=== PATIENT | male | born 1950 | race Caucasian/White ===

== ENCOUNTER 2024-08-24 11:18 | Emergency (ER) | payer MEDICARE, OTHER, SELFPAY ==
[2024-08-24 11:44] VITALS: BP 140/64
--- NOTE | 2024-08-24 11:58 | ED.GENMED ---
ED Provider Triage
<Christine Michelle PA-C - Last Filed: 08/26/24 07:27>
-
Patient seen by provider in Triage?: Seen in Triage
74-year-old male with a history of hypertension, hyperlipidemia, mini strokes, chronically uses a cane, coming from physical therapy after the therapist noticed his left calf is swollen more than the right and he had a little puffiness to his hands
and maybe even his face. Patient says he did have a mechanical fall this morning in the shower. His was unaware that he fell. He said he slipped and fell backwards not striking his head and had no loss of consciousness. He was able to get
himself up. He had a little bit of soreness in his knees but no headache, neck pain, back pain. Patient says he as per usual came to physical therapy and then was instructed to come here. If not for the physical therapist he would not be here.
A medical screening examination has been initiated by a qualified medical provider. Based on the assessment performed at this time, it has been determined that an emergent medical condition may exist and the patient has been informed that further
medical evaluation and possible additional diagnostic testing may be needed.
HPI: This is a medical evaluation conducted in person to initiate diagnostic evaluation and provide initial therapeutics. Please see further documentation by the treating clinician.
GENERAL: Alert , in no apparent distress
ENT: No visible abnormalities
LUNGS: No acute respiratory distress
NEUROLOGICAL: Alert and oriented
SKIN: Skin intact. No visible changes.
MUSCULOSKELETAL: Moving extremities normally
Bilateral knees, no significant swelling, full range of motion, possibly slightly swollen left calf with a varicosity that is nontender, nonerythematous had mild edema in both lower extremities, I do not appreciate any facial edema
PSYCH: Normal and appropriate interaction.
Patient did have a fall today however it does not seem like that is why he is here. His physical therapist noticed that he looks a little puffy and had swelling to his left calf. Patient says he is not aware that this calf is usually swollen more
than the right side. Will workup with labs and a ultrasound. He does not seem to need any traumatic imaging
History of Present Illness
<Christine Michelle PA-C - Last Filed: 08/26/24 07:27>
General
Chief Complaint: Fall
Time Seen by Provider: 08/24/24 12:15
<Kiana Baker PA-C - Last Filed: 08/24/24 22:48>
General
Source: patient
Exam Limitations: none
Nursing documentation reviewed up to this point in time: agreed with
History of Present Illness
History of Present Illness:
Patient is a 74 year old male with hx hypertension, diabetes, TIA presenting to the emergency department from physical therapy due to lower extremity swelling. Patient was at physical therapy today when the therapist felt that his he had worsening
swelling in his left lower leg in comparison to his right lower leg. They were concerned for possible blood clot and sent him to the emergency department. They did also note some swelling to his bilateral hands and his face.
Patient has been seeing physical therapy due to balance difficulties following mini strokes. He does state that he has been dealing with swelling of his lower legs and hands over the past month or so for which she has been following with his PCP.
They did recently switch him off of his amlodipine.
Patient states that he did sustain a mechanical slip and fall today while getting out of the shower. He did not hit his head or lose consciousness. He has been ambulating with a cane at his baseline since.
Patient denies any associated chest pain, shortness of breath. No recent travel or recent surgeries. No history of blood clots clotting disorders.
Past History
<Christine Michelle PA-C - Last Filed: 08/26/24 07:27>
Past History
ED Past Medical History: HTN, NIDDM and Other (syncope)
Social History
Tobacco: Non-smoker
Personal:
Living: with family
Employment: Employed
Review of Systems
<Kiana Baker PA-C - Last Filed: 08/24/24 22:48>
Review of Systems
Allergies reviewed?: Yes
All Other Systems: ROS reviewed and negative except as documented in HPI and ROS
Phy Exam
<Kiana Baker PA-C - Last Filed: 08/24/24 22:48>
Physical Exam
Physical Exam:
Vitals: Patient's vital signs are stable. Afebrile
General: Patient is well appearing, no acute distress. Nontoxic appearing
Skin: Warm and dry, no rashes or lesions
Head: Normocephalic, atraumatic
Eyes: Sclera nonicteric. EOMs intact. No nystagmus.
Throat: No tongue swelling or oral swelling. Protecting airway
Neck: Normal ROM, no cervical spine tenderness, no meningismus
Cardiac: Regular rate and rhythm, no murmurs.
Pulm: Normal respiratory effort, no wheezes, rales, rhonchi heard on exam.
Abdomen: Abdomen soft. No abdominal tenderness.
Extremities: Trace nonpitting edema in bilateral lower extremities which appears symmetric. No erythema, tenderness of bilateral calf. Negative Homans' sign bilaterally. Palpable DP pulses bilaterally. Upper extremities without any notable
edema. Bilateral upper and lower extremities atraumatic and nontender with full range of motion. No tenderness with internal/external rotation of bilateral hips.
Neuro: Grossly intact.
Psychiatric: Normal affect.
Course
<Christine Michelle PA-C - Last Filed: 08/26/24 07:27>
Orders/Labs/Results
Orders:
Orders
08/24/24 11:57
Periph Venous Lwr Ext Left US [US Periph Venous LOWER Ext LT] Urgent
Comment:
Reason For Exam: left calf swelling
08/24/24 12:02
Complete Blood Count/With Diff Urgent
Comprehensive Metabolic Panel Urgent
NT-proBNP Urgent
08/24/24 12:52
Interrogate Pacemaker- Treatment ONCE
08/24/24 13:40
Urinalysis Reflex To Culture Urgent
Date Specimen was Collected: 08/24/24
Time Specimen was Collected: 13:05
Abnormal Lab Results
08/24/24 08/24/24
12:02 13:40
MCHC 32.8 L g/dL
(33.0-37.0)
Carbon Dioxide 31 H mmol/L
(22-30)
BUN 34 H mg/dl
(9-20)
Glucose 146 H mg/dl
(70-99)
Urine Glucose 3+ A
(Negative)
08/24/24 12:02
08/24/24 12:02
Vital Signs
Initial and Last Documented VS:
Initial Vital Signs
Temp Pulse Resp BP Pulse Ox
37.0 C 50 18 140/64 96
08/24/24 11:44 08/24/24 11:44 08/24/24 11:44 08/24/24 11:44 08/24/24 11:44
Last Documented Vital Signs
Temp Pulse Resp BP Pulse Ox
37.0 C 50 18 144/74 96
08/24/24 11:44 08/24/24 14:54 08/24/24 14:54 08/24/24 14:54 08/24/24 11:44
<Kiana Baker PA-C - Last Filed: 08/24/24 22:48>
Orders/Labs/Results
Orders:
Orders
08/24/24 11:57
Periph Venous Lwr Ext Left US [US Periph Venous LOWER Ext LT] Urgent
Comment:
Reason For Exam: left calf swelling
08/24/24 12:02
Complete Blood Count/With Diff Urgent
Comprehensive Metabolic Panel Urgent
NT-proBNP Urgent
08/24/24 12:52
Interrogate Pacemaker- Treatment ONCE
08/24/24 13:40
Urinalysis Reflex To Culture Urgent
Date Specimen was Collected: 08/24/24
Time Specimen was Collected: 13:05
Abnormal Lab Results
08/24/24 08/24/24
12:02 13:40
MCHC 32.8 L g/dL
(33.0-37.0)
Carbon Dioxide 31 H mmol/L
(22-30)
BUN 34 H mg/dl
(9-20)
Glucose 146 H mg/dl
(70-99)
Urine Glucose 3+ A
(Negative)
08/24/24 12:02
08/24/24 12:02
Vital Signs
Initial and Last Documented VS:
Initial Vital Signs
Temp Pulse Resp BP Pulse Ox
37.0 C 50 18 140/64 96
08/24/24 11:44 08/24/24 11:44 08/24/24 11:44 08/24/24 11:44 08/24/24 11:44
Last Documented Vital Signs
Temp Pulse Resp BP Pulse Ox
37.0 C 50 18 144/74 96
08/24/24 11:44 08/24/24 14:54 08/24/24 14:54 08/24/24 14:54 08/24/24 11:44
<Bigg Morse MD - Last Filed: 08/24/24 13:20>
Orders/Labs/Results
Orders:
Orders
08/24/24 11:57
Periph Venous Lwr Ext Left US [US Periph Venous LOWER Ext LT] Urgent
Comment:
Reason For Exam: left calf swelling
08/24/24 12:02
Complete Blood Count/With Diff Urgent
Comprehensive Metabolic Panel Urgent
NT-proBNP Urgent
08/24/24 12:52
Interrogate Pacemaker- Treatment ONCE
08/24/24 13:40
Urinalysis Reflex To Culture Urgent
Date Specimen was Collected: 08/24/24
Time Specimen was Collected: 13:05
Abnormal Lab Results
08/24/24 08/24/24
12:02 13:40
MCHC 32.8 L g/dL
(33.0-37.0)
Carbon Dioxide 31 H mmol/L
(22-30)
BUN 34 H mg/dl
(9-20)
Glucose 146 H mg/dl
(70-99)
Urine Glucose 3+ A
(Negative)
08/24/24 12:02
08/24/24 12:02
Vital Signs
Initial and Last Documented VS:
Initial Vital Signs
Temp Pulse Resp BP Pulse Ox
37.0 C 50 18 140/64 96
08/24/24 11:44 08/24/24 11:44 08/24/24 11:44 08/24/24 11:44 08/24/24 11:44
Last Documented Vital Signs
Temp Pulse Resp BP Pulse Ox
37.0 C 50 18 144/74 96
08/24/24 11:44 08/24/24 14:54 08/24/24 14:54 08/24/24 14:54 08/24/24 11:44
<Kiana Baker PA-C - Last Filed: 08/24/24 22:48>
MDM/Problems Addressed
Differential Diagnosis Includes:
Not limited to: Medication side effect, dependent edema, DVT, nephrotic syndrome, etc.
MDM/Problems Addressed:
74 year old male presents with mild swelling of bilateral lower extremities, left slightly worse than right. No associated fevers, chest, pain, or shortness of breath. Patient did have mechanical fall this morning although denies any head strike or
traumatic injuries. Vitals stable. On exam patient is resting comfortably. No evidence of head or neck trauma. Cardio/pulmonary assessment unremarkable. Mild nonpitting edema of b/l lower extremities, left possibly slightly worse than right. No
erythema or tenderness to suggest infectious process. No traumatic injuries noted. Labs were obtained in triage without clinically significant abnormalities. BNP is not significantly elevated - do not suspect CHF. US lower extremity pending. Will
check UA to rule out significant proteinuria vs infection. Pacemaker was interrogated without any events noted. Patient otherwise stable and if all negative - anticipate discharge with primary f/u.
Update: US shows no evidence of DVT. UA without evidence of infection or protein to suggest a nephrotic syndrome. Patient very stable. Edema minimal - feel he is stable for discharge with outpatient f/u with primary care. Return precautions
discussed.
Chronic conditions affecting care:
Hypertension
Acute Exacerbation and/or Progression of Chronic Illness:
N/A
<Kiana Baker PA-C - Last Filed: 08/24/24 22:48>
*Radiology
Radiology exam reviewed: radiology read reviewed (No evidence of DVT)
*Pulse Oximetry
Patient hypoxic: no
*EKG
Interpreted by ED Provider?: NA
*Post Commander Interpretation
Rate: Post Commander- N/A
*Critical Care Note
Total Time (30-74mins, 75-104mins- exclusive of procedures): Not Applicable
ED Attending Note
<Christine Michelle PA-C - Last Filed: 08/26/24 07:27>
-
Portions of this chart may have been created with voice recognition software.� Occasional wrong word or��sound alike� substitutions may have occurred due to the inherent limitations of voice recognition software.
<Bigg Morse MD - Last Filed: 08/24/24 13:20>
ED Attending Note
Patient seen and examined by attending physician: Yes
ED Attending Note:
I have seen and evaluated the patient with a [id number] encounter. I have spoken to the advance practicer provider and involved in the medical history, the physical exam, medical decision making.
Evaluation and management service: agree unless noted differently below.
Results interpretation: agree unless noted differently below.
Focused HPI: 74-year-old male with history as documented presents to the ER for evaluation of left leg swelling. He is at PT after stroke. He says that the therapist noted some increase swelling in the left leg. Sent him to the ER to be evaluated
to rule out DVT. He says he did have some achiness in his knees on both sides this morning more than usual dad and arthritis. He says he has had chronic 'puffiness' in his hands and feet for months. Had been attributed to amlodipine and primary
doctor switched to a different blood pressure medication. Slight improvement but not resolution. Denies any shortness of breath. Denies any cough. He denies any other complaints.
Physical exam: Awake alert no distress. Vitals within acceptable range. He has no cardiac rubs gallops or murmurs. Loop recorder left upper chest. Lungs clear to auscultation bilaterally. No notable edema in the upper extremities, trace
nonpitting edema in the lower extremities bilaterally but appears roughly symmetric. No significant calf tenderness, no erythema of the left calf. Good strong pulses in all extremities.
Medical Decision Makin-year-old male presents with mild swelling in the legs he feels slightly worse on the left. Vitals and exam as above. Labs were sent off in triage including a CBC and a CMP which were unremarkable. His proBNP is not
significantly elevated. Urinalysis pending. DVT study pending. If negative likely discharge to follow-up with PCP.
Discharge Plan
Departure
Patient Disposition: Home (Routine Discharge)
Date of Disposition: 08/24/24
Time of Disposition: 14:25
Patient with high blood pressure during this ER visit?: Yes
Condition: Good
Covid-19: Not Applicable
Discharge Problem:
Peripheral edema
Instructions: Swelling, Preventing falls in adults, BLOOD PRESSURE
Prescriptions:
No Action
pioglitazone 45 MG tablet
45 mg PO DAILY
potassium chloride [Klor-Con 10] 10 MEQ tablet extended release
10 meq PO BID
amlodipine 5 MG tablet
5 mg PO DAILY
tamsulosin 0.4 MG capsule
0.4 mg PO HS
paroxetine HCl [Paxil] 20 MG tablet
20 mg PO HS
metformin 1,000 MG tablet
1,000 mg PO BID
glimepiride 4 MG tablet
4 mg PO BID
losartan 25 MG tablet
50 mg PO BID
hydrochlorothiazide 12.5 MG capsule
12.5 mg PO DAILY
metoprolol succinate 25 MG tablet extended release 24 hr
25 mg PO DAILY
rosuvastatin 10 MG tablet
10 mg PO DAILY
sitagliptin phosphate [Januvia] 100 MG tablet
100 mg PO DAILY
Referrals:
Aminata Griffith MD [Family Provider] - Follow up in 5-7 days
Activity Restrictions/Additional Instructions:
Return to the emergency department with any chest pain, shortness of breath, worsening leg swelling or pain, worsening swelling of hands, repeat falls, or any other concerns
-As discussed�your ultrasound showed no evidence of a blood clot today. Your urine showed no evidence of an infection.
-You should elevate your legs when possible. Stay well-hydrated. Avoid salty foods.
-Continue to take all your medications as prescribed.
-Follow-up with your primary care provider for further evaluation/management and to ensure that symptoms are improving
Monitor your symptoms closely and return to the emergency department any acute worsening/new symptoms or any other concern
Interventions
Interventions:
*Risk Screen - Suicide Last Done: 08/24/24 12:13
*General Assessment Last Done: 08/24/24 12:13
*Neglect/Abuse Screening Last Done: 08/24/24 12:13
ED- Fall Risk Assessment Last Done: 08/24/24 12:22
*ED COVID-19 Vaccine History Last Done: 08/24/24 11:46
*Nursing Disposition Last Done: 08/24/24 14:55
ED-Musculoskeletal Assessment Last Done: 08/24/24 12:21
ED- Neurological Assessment Last Done: 08/24/24 12:21
ED-Skin Assessment Last Done: 08/24/24 12:21
Discharge Date and Time
Discharge Date/Time: 08/24/24 14:55
Print Language: BURKINAN
[2024-08-24 12:13] VITALS: BMI 30.9
[2024-08-24 12:20] LABS: % Basophils 0.7 % (0-2); % Eosinophils 2.8 % (0-6); % Lymphocytes 26.4 % (20.5-51.1); % Monocytes 7.2 % (1.7-9.3); % Neutrophils 62.9 % (42.2-75.2); Absolute Eosinophils 0.2 10^3/uL (0-0.7); Absolute Lymphocytes 1.6 10^3/uL (1.2-3.4); Absolute Monocytes 0.4 10^3/uL (0.1-0.6); Absolute Neutrophils 3.8 10^3/uL (1.4-6.5); Hematocrit 45.7 % (39.0-52.0); Mean Corp Hgb Conc. 32.8 g/dL (33.0-37.0); Mean Corpuscular Volume 88.2 fL (80.0-94.0); Mean Platelet Volume 9.8 fL (7.4-10.4); Nucleated Red Blood Cells % 0 % (-); Platelet Count 265 10^3/uL (130-400); Red Blood Cell Count 5.18 10^6/uL (4.70-6.10)
[2024-08-24 12:34] LABS: ALT (SGPT) 26 U/L (0-50); AST (SGOT) 23 U/L (17-59); Albumin 3.9 g/dl (3.5-5.0); Alkaline Phosphatase 55 U/L (38-126); Blood Urea Nitrogen 34 mg/dl (9-20); Carbon Dioxide 31 mmol/L (22-30); Chloride 102 mmol/L (98-107); Estimated Creatinine Clearance 81 ml/min; Glucose 146 mg/dl (70-99); Potassium 3.8 mmol/L (3.5-5.1); Sodium 142 mmol/L (135-145); Total Bilirubin 0.6 mg/dl (0.2-1.3); Total Protein 6.4 g/dl (6.3-8.2); eGFR > 60.00
[2024-08-24 12:43] LABS: NT-proBNP 279 pg/ml
[2024-08-24 13:57] LABS: Urine Albumin Negative (Neg - Trace); Urine Bilirubin Negative (Negative); Urine Character Clear (Clear); Urine Color Yellow; Urine Glucose 3+ (Negative); Urine Ketone Negative (Negative); Urine Leukocyte Negative (Negative); Urine Nitrite Negative (Negative); Urine Occult Blood Negative (Negative); Urine Urobilinogen Negative (Neg - 1+)
[2024-08-24 14:54] VITALS: BP 144/74
== END 2024-08-24 14:55 | disposition home or self-care (01) ==
LOC: EMR 11:18
PROVIDERS: Physician Assistant; EMERGENCY PHYSICIAN Emergency Medicine; FAMILY PHYSICIAN Internal Medicine
DX: R60.0 Localized edema (principal); I10 Essential (primary) hypertension; E11.9 Type 2 diabetes mellitus without complications; Z86.73 Personal history of transient ischemic attack (TIA), and cerebral infarction without residual deficits
CPT/HCPCS: 99284; 80053; 81003; 83880; 85025; 93971

== ENCOUNTER 2024-12-22 06:18 | Outpatient (RCR) | payer SELFPAY | END 2024-12-22 23:59 | disposition home or self-care (01) | LOC: ROT 06:18 | PROVIDERS: ATTENDING PHYSICIAN Internal Medicine | DX: Z02.4 Encounter for examination for driving license (principal) ==

== ENCOUNTER 2024-12-30 02:28 | Observation (INO) | payer MEDICARE, OTHER, SELFPAY ==
[2024-12-29 21:49] VITALS: BP 156/79
[2024-12-29 22:11] VITALS: BP 146/76
[2024-12-29 22:12] VITALS: BMI 29.0
--- NOTE | 2024-12-29 22:40 | ED.GENMED ---
History of Present Illness
General
Chief Complaint: Weakness
Source: patient, spouse, family (Daughter at bedside) and previous hospital records (ED visit July 2024 after patient suffered a fall and noted to have left leg swelling and physical therapy. Recent occupational therapy driving evaluation November
2024. Deemed moderate to high risk)
Exam Limitations: none
Time Seen by Provider: 12/29/24 22:05
Nursing documentation reviewed up to this point in time: agreed with
History of Present Illness
History of Present Illness:
This is a 74-year-old gentleman who resides at home with his . He has history of hypertension, jzv-[id number]-[id number] diabetes, hyperlipidemia, 2 previous TIAs as well as history of vascular Parkinson's disease.
He has history of chronic ambulatory dysfunction and utilizes a cane with ambulating and continues to participate in physical therapy. 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 Since then has had some
left hip pain and he fell again today in the bathroom. He does not recall how or when he fell. His left the house today around lunchtime and attempted to call her at 2 PM but no answer. She returned home at 7:30 PM to find her
lying on the floor in the bathroom. Unsure as to how long he had been lying on the floor. His daughter and son-in-law were able to help him to stand but upon standing was noted to have significant generalized weakness, he seemed to be much
more weak on the left side than the right, needed marked assistance to ambulate out of the bathroom to the bedroom. Using stair chair and then wheelchair they were able to get him into the car and he arrives via private auto.
Daughter noted a brief cough and as the patient's recently suffered COVID URI 1 week ago, she tested her father abner with home COVID test which returned positive. According to and patient he began with mild cough yesterday.
He has a CGM. Blood sugars have been ranging 130. No reported hypoglycemic episodes today.
He does admit to generalized weakness, has had limited oral intake today as he has been lying on the floor. No nausea or vomiting, no diarrhea nor constipation.
He has history of UTIs and was recently treated for UTI 1 month ago.
He has a loop recorder in place.
Along with outpatient physical therapy treatments he recently underwent driving risk assessment with occupational therapy on December 22. Deemed moderate to high risk. Patient admittedly is markedly disgruntled regarding driving assessment results.
He believes he is still able to drive.
Past History
Past History
ED Past Medical History: CVA (TIA x 2-most recent episode October 2023. Extensive evaluation at [facility] including EEG, loop recorder, CT/MRI), HTN, Hypercholesterolemia, NIDDM, Other (BPH, UTIs) and Other (syncope; vascular
Parkinson's disease)
ED Past Surgical History: Cardiac (Loop recorder)
Social History
Tobacco: Non-smoker
Alcohol: None
Personal:
Living: with family
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
Family History
Family History: Other (Noncontributory)
Phy Exam
Physical Exam
Physical Exam:
GENERAL: 74-year-old gentleman appears his stated age, awake and alert, pleasant, appears in no acute distress. and daughter are accompanying. He is noted to have low-grade fever of, 100 �F.
EYE: pupils equal and reactive. anicteric. The head is normocephalic, atraumatic.
NECK: Supple, nontender, no meningismus, no significant adenopathy.
ENT: posterior pharynx is clear, oral mucosa is minimally dry. TM clear b/l, nares patent.
CARDIAC: Regular rate and rhythm. no murmur.
LUNGS: Clear breath sounds bilaterally, no acute respiratory distress, no wheezes/rales/rhonchi
ABDOMEN: Soft, nondistended, without focal tenderness, no r/g, no cvat. normoactive BS.
BACK: Patient able to pull himself up to upright positioning. No midline bony tenderness. No contusions nor abrasions noted. No palpable bony pelvic tenderness.
NEUROLOGICAL: Alert and oriented x3, no focal neuro deficits. Motor strength is 5/5 bilaterally. Gross sensation is intact.
SKIN: Mildly hot to touch and dry, normal color, skin intact. No rash.
MUSCULOSKELETAL: No C/C/E. peripheral pulses are full and equal b/l. There is mild soft tissue swelling left anterior knee with superficial subacute abrasion left anterior distal knee. No appreciable tenderness to palpation and full range of
motion without difficulty. No crepitus. No palpable tenderness about the hips and full range of motion without difficulty.
PSYCH: Normal and appropriate interaction.
Course
Orders/Labs/Results
Orders:
Orders
12/29/24 22:31
Interrogate Pacemaker- Treatment ONCE
Hip, Left 2-3 Views [CR Hip - LT w/wo Pel 2-3 Vw*] Urgent
Comment:
Reason For Exam: fall 2 d ago and today-L hip pain
Include a pelvis x-ray?: Yes
12/29/24 22:32
Electrocardiogram (*1) Urgent
Reason for Study: Fatigue / Weakness
CT Head W/o Iv Contrast Urgent
Comment:
Reason For Exam: frequent falls, head injury
EKG- Treatment ONCE
12/29/24 22:33
Urinalysis Reflex To Culture Urgent
CR Chest - 2 Views Urgent
Comment:
Reason For Exam: cough x 1-2 d; covid (+)
12/29/24 22:35
0.9% Sodium Chloride 1000 ml [Nss] 1,000 ml IV BOLUS
Acetaminophen [Tylenol] 1,000 mg PO NOW STA
12/29/24 22:39
CPK [Creatine Phosphokinase] Urgent
Complete Blood Count/With Diff Urgent
Comprehensive Metabolic Panel Urgent
Lactic Acid Q4H
Comment: CANCEL 2nd LACTIC ACID IF 1st LACTIC ACID IS LESS THAN 2
TSH Reflex To Free T4 Urgent
Troponin I Urgent
Blood Culture Q30M
NANCY Source: Blood/Venous
Specimen Description:
Blood Culture Q30M
NANCY Source: Blood/Venous
Specimen Description:
12/29/24 23:20
Knee, Left 4 or More Views [CR Knee - Left 4 Or More View*] Urgent
Comment:
Reason For Exam: fall 2 days ago, and again tonight L knee swelling
12/29/24 23:48
Potassium Chloride [KCl] 40 meq PO NOW STA
12/30/24 02:45
Lactic Acid Q4H
Comment: CANCEL 2nd LACTIC ACID IF 1st LACTIC ACID IS LESS THAN 2
Abnormal Lab Results
12/29/24
22:39
RDW 14.9 H %
(11.5-14.5)
Absolute Neuts (auto) 6.6 H 10^3/uL
(1.4-6.5)
Absolute Lymphs (auto) 0.9 L 10^3/uL
(1.2-3.4)
Absolute Monos (auto) 0.7 H 10^3/uL
(0.1-0.6)
Neutrophils % 79.9 H %
(42.2-75.2)
Lymphocytes % 10.8 L %
(20.5-51.1)
Potassium 3.4 L mmol/L
(3.5-5.1)
BUN 21 H mg/dl
(9-20)
Glucose 138 H mg/dl
(70-99)
Creatine Kinase 288 H U/L
(55-170)
Total Protein 6.2 L g/dl
(6.3-8.2)
12/29/24 22:39
12/29/24 22:39
Vital Signs
Temp: 100.0 F
Initial and Last Documented VS:
Initial Vital Signs
Temp Pulse Resp BP Pulse Ox
98.3 F 78 20 156/79 97
12/29/24 21:49 12/29/24 21:49 12/29/24 21:49 12/29/24 21:49 12/29/24 21:49
Last Documented Vital Signs
Temp Pulse Resp BP Pulse Ox
100.0 F 88 16 142/89 92
12/29/24 22:54 12/29/24 23:15 12/29/24 23:15 12/29/24 23:00 12/29/24 23:15
MDM/Problems Addressed
Differential Diagnosis Includes:
COVID-positive, low-grade fever, frequent falls. Concern for sepsis, TIA versus subacute CVA, pneumonia, UTI.
Concern for prolonged time lying on the bathroom floor thus concern for rhabdomyolysis.
Concern for occult hip/pelvic fracture. Left knee contusion, concern for occult fracture versus DJD.
Concern for dehydration, electrolyte abnormality.
Concern for occult arrhythmia.
Concern for progression of Parkinson's disease/gait disorder.
CGM reviewed, does not appear to signify hypoglycemic episode.
Will check labs including CPK, lactic acid, blood cultures, urinalysis.
Will check CT of the head, chest x-ray, left hip and pelvis x-rays.
Will interrogate loop recorder. 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
Will initiate IV fluids and give Tylenol for fever.
Patient found to be COVID-positive on home testing, no indication to repeat.
Due to severe generalized weakness, inability to ambulate patient is at significant risk for recurrent falls thus will require acute hospitalization.
Chronic conditions affecting care: DM, HTN and Neurological disorder
*Radiology
Radiology exam reviewed: preliminary read by ED provider (Left knee and left hip/pelvic x-ray is unremarkable. No fracture. Chest x-ray shows elevated left hemidiaphragm. Loop recorder left anterior chest wall. Otherwise unremarkable. No old
films to compare.) and radiology read reviewed (CT of the head shows no acute intracranial abnormality. No territorial infarct. Mild microangiopathy and volume loss.)
*Pulse Oximetry
Patient hypoxic: no
*EKG
Interpreted by ED Provider?: Yes
Comparison EKG: no changes (Unchanged from previous September 2020)
Rate: normal
Rhythm: sinus
[place]: normal axis
Interval: first degree heart block
QRS Pattern: poor R-wave progression
Ischemia: non-specific ST changes
*Stunt Person Interpretation
Rate: normal
Interpretation: normal
Rhythm: sinus
*Critical Care Note
Total Time (30-74mins, 75-104mins- exclusive of procedures): Not Applicable
Update Note
Update Note:
00:20
Labs are unremarkable save for mildly elevated CPK of 288, mild hypokalemia of 3.4. This has been repleted orally.
Lactic acid is normal. CBC is unremarkable.
CT of the head shows no acute intracranial abnormalities. There is note of mild microangiopathy and volume loss.
Chest x-ray shows elevated left hemidiaphragm, loop recorder left anterior chest wall otherwise unremarkable. No old films to compare.
Left hip/pelvis, left knee x-ray is unremarkable.
Loop recorder interrogated, shows no arrhythmia.
Urinalysis is pending.
Will continue IV fluids, antipyretics, consider initiation of Paxlovid for acute COVID-19 with onset of symptoms reported yesterday.
Will admit to hospitalist service.
ED Attending Note
-
Portions of this chart may have been created with voice recognition software.� Occasional wrong word or��sound alike� substitutions may have occurred due to the inherent limitations of voice recognition software.
Discharge Plan
Departure
Patient Disposition: Admit
Date of Disposition: 12/30/24
Time of Disposition: 00:19
Admit to doctor: Fish
Presentation/result/management discussed w/ accepting MD/DO: Hospitalist
Condition: Fair
Discharge Problem:
COVID-19, acute on chronic ambulatory dysfunction, Generalized muscle weakness, Fever r/o sepsis, Elevated CPK
Prescriptions:
No Action
pioglitazone 45 MG tablet
45 mg PO DAILY
potassium chloride [Klor-Con 10] 10 MEQ tablet extended release
10 meq PO BID
amlodipine 5 MG tablet
5 mg PO DAILY
tamsulosin 0.4 MG capsule
0.4 mg PO HS
paroxetine HCl [Paxil] 20 MG tablet
20 mg PO HS
metformin 1,000 MG tablet
1,000 mg PO BID
glimepiride 4 MG tablet
4 mg PO BID
losartan 25 MG tablet
50 mg PO BID
hydrochlorothiazide 12.5 MG capsule
12.5 mg PO DAILY
metoprolol succinate 25 MG tablet extended release 24 hr
25 mg PO DAILY
rosuvastatin 10 MG tablet
10 mg PO DAILY
sitagliptin phosphate [Januvia] 100 MG tablet
100 mg PO DAILY
Referrals:
Aminata Griffith MD [Family Provider] -
Interventions
Interventions:
*Risk Screen - Suicide Last Done: 12/29/24 22:12
*General Assessment Last Done: 12/29/24 21:49
*Neglect/Abuse Screening Last Done: 12/29/24 22:12
*ED- Fall Risk Assessment Last Done: 12/29/24 22:12
*ED COVID-19 Vaccine History Last Done: 12/29/24 22:12
ED- Cardiac Assessment Last Done: 12/29/24 22:12
ED- Neurological Assessment Last Done: 12/29/24 22:12
ED- Pulmonary Assessment Last Done: 12/29/24 22:12
Discharge Date and Time
Print Language: SINGAPOREAN
[2024-12-29] MEDS: TYLENOL 1000 MG PO (22:58)
[2024-12-29 22:59] LABS: % Basophils 0.4 % (0-2); % Eosinophils 0.2 % (0-6); % Immature Granulocytes 0.2 % (0-0.5); % Lymphocytes 10.8 % (20.5-51.1); % Monocytes 8.5 % (1.7-9.3); % Neutrophils 79.9 % (42.2-75.2); Absolute Lymphocytes 0.9 10^3/uL (1.2-3.4); Absolute Monocytes 0.7 10^3/uL (0.1-0.6); Absolute Neutrophils 6.6 10^3/uL (1.4-6.5); Hemoglobin 14.2 g/dL (13.0-18.0); Mean Corp Hgb Conc. 33.8 g/dL (33.0-37.0); Mean Corpuscular Hgb 29.7 pg (27.0-31.0); Mean Corpuscular Volume 87.9 fL (80.0-94.0); Mean Platelet Volume 9.8 fL (7.4-10.4); Nucleated Red Blood Cells % 0 % (-); Platelet Count 247 10^3/uL (130-400); Red Blood Cell Count 4.78 10^6/uL (4.70-6.10); Red Cell Dist. Width 14.9 % (11.5-14.5); White Blood Cell Count 8.2 10^3/uL (4.8-10.8)
[2024-12-29] MEDS: NSS 1000 IV (22:59)
[2024-12-29 23:00] VITALS: BP 142/89
[2024-12-29 23:11] LABS: Lactic Acid 1.4 mmol/L (0.7-2.0)
[2024-12-29 23:23] LABS: Troponin I < 0.012 ng/ml
[2024-12-29 23:31] LABS: ALT (SGPT) 25 U/L (0-50); AST (SGOT) 28 U/L (17-59); Albumin 3.7 g/dl (3.5-5.0); Alkaline Phosphatase 54 U/L (38-126); Blood Urea Nitrogen 21 mg/dl (9-20); Carbon Dioxide 28 mmol/L (22-30); Chloride 103 mmol/L (98-107); Creatine Phosphokinase 288 U/L (55-170); Estimated Creatinine Clearance 89 ml/min; Glucose 138 mg/dl (70-99); Potassium 3.4 mmol/L (3.5-5.1); Sodium 140 mmol/L (135-145); Total Bilirubin 0.8 mg/dl (0.2-1.3); Total Protein 6.2 g/dl (6.3-8.2); eGFR > 60.00
[2024-12-29 23:50] LABS: TSH Reflex To Free T4 1.51 uIU/ml (0.47-4.68)
[2024-12-30] VITALS (13 sets, daily range): BP systolic 121–165; BP diastolic 73–96; PULSE 92; O2SAT 95
[2024-12-30] MEDS: KCL 40 MEQ PO ×2 (00:04→08:40)
[2024-12-30] MEDS: PAXLOVID 2X150 MG-100 MG DOSE PACK 1 DOSE PO (01:41)
--- NOTE | 2024-12-30 01:44 | HPS.HSE ---
Family Physician
-
Family Physician: Aminata Griffith MD
Chief Complaint
-
Weakness
History of Present Illness
This is an 74-year-old with past medical history of insulin-dependent diabetes, hypertension, hyperlipidemia, multiple TIA, BPH, recent diagnosis of gait defect thought secondary to Parkinson not currently on any medications presenting to the
emergency department after a fall at home where was found to be weak and had increasing ambulatory difficulties.
According to spouse patient had a fall while he was bending over 2 days ago. He recovered quickly without any trauma at that time did not come to the emergency department. He has had multiple falls over the last several months and has been
evaluated and thought to have Parkinson. Spouse reported that she was having respiratory symptoms about a week ago and was diagnosed with COVID-19. Patient started having a cough 2 days ago. Was otherwise usual state of health. When he arose in
the morning he was also in usual state of health denies any fevers or chills. Denies any weakness. Denies any nausea vomiting or diarrhea. He had a good appetite and he had his breakfast and coffee. At around 2 PM spouse left him at home and
when she came back around 7 PM she found him on the floor and states that he was unable to get up. Patient himself did not remember how he got on the floor. He denies remembering any chest pain, palpitations, lightheadedness or dizziness. Denies
any prior history of syncope. He had used his usual amount of insulin last night and his sugar was fine in the morning. He did have breakfast. He has no prior history of seizures. When was found on the floor he was alert and oriented but unable
to ambulate and needed help to get to a seated position. When family tried to ambulate him he had trouble moving his left leg impact due to pain but also seems to be confused. He had been checked for COVID within the last 24 hours and was positive
at home. He told me he had left side and hip pain but denies any flank pain. He has mild urinary incontinence which has improved since he has better control of his diabetes. He denies any dysuria. Unknown if he struck his head but he has no
report of head trauma.
In the emergency department he was afebrile with a low-grade temp of 100, blood pressure was 140/90 with a pulse of 82, ECG shows a normal sinus rhythm at rate of 85 and unchanged from prior. Troponin was 0.012. CBC was completely normal.
Electrolytes BUN/creatinine were also unremarkable. Chest x-ray was clear. CT of the head shows no acute intracranial process. Hip x-ray was negative. Knee x-ray was negative.
Medical History
Past Medical History
Past Medical History: Reports CVA (Multiple TIAs), HTN, Hypercholesterolemia, IDDM and Other (BPH)
Past Surgical History: Reports Other (Hand surgery)
Social History
Tobacco: Non-smoker
Alcohol: None
Drug: None
Personal:
Living: With Family
Employment: Retired
Family History
Family History: Not pertinent
Allergies / Home Medications
Allergies reflects when Allergies were last updated in [facility].
Home Medications with original date entered in [facility]
Allergy/Medication List:
Allergies
Allergy/AdvReac Type Severity Reaction Status Date / Time
azithromycin Allergy Intermediate Tongue Verified 12/29/24 21:49
Swelling
Home Medications
amlodipine 5 mg tablet 10 mg PO DAILY 10/07/20
losartan 25 mg tablet 50 mg PO BID 10/07/20
metformin 1,000 mg tablet 1,000 mg PO BID 10/07/20
metoprolol succinate 25 mg tablet,extended release 24 hr 25 mg PO DAILY 10/07/20
paroxetine HCl 20 mg tablet (Paxil) 20 mg PO HS 10/07/20
pioglitazone 45 mg tablet 45 mg PO DAILY 10/07/20
rosuvastatin 10 mg tablet 20 mg PO DAILY 10/07/20
tamsulosin 0.4 mg capsule 0.4 mg PO HS 10/07/20
aspirin 81 mg chewable tablet 81 mg PO DAILY 12/30/24
empagliflozin 25 mg tablet 25 mg PO DAILY 12/30/24
empagliflozin 25 mg tablet (Jardiance) 25 mg PO DAILY 12/30/24
finasteride 5 mg tablet 5 mg PO DAILY 12/30/24
insulin glargine 100 unit/mL (3 mL) subcutaneous pen (Basaglar KwikPen U-100 Insulin) 20 unit SC DAILY 12/30/24
Review of Systems
-
History Source: Patient
Constitutional: Reports No Symptoms
EENT: Reports No Symptoms
Respiratory: Reports Cough
Cardiac: Reports No Symptoms
Abdomen/GI: Reports No Symptoms
: Reports No Symptoms
Musculoskeletal: Reports No Symptoms
Skin: Reports No Symptoms
Neurological: Reports Weakness
Endocrine: Reports No Symptoms
Hematologic/Lymphatic: Reports No Symptoms
Psych: Reports No Symptoms
Physical Exam
Vital Signs
Vital Signs
Temp Pulse Resp BP Pulse Ox
100.0 F 80 18 142/89 95
12/29/24 22:54 12/30/24 01:30 12/30/24 01:30 12/29/24 23:00 12/30/24 01:30
Physical Exam
General: Well Developed, Well Nourished, No Apparent Distress and Comfortable
HEENT: NormoCephalic, Anicteric, Moist mucous membranes and Atraumatic
Respiratory: Clear
Cardiac: S1/S2 and Regular Rhythm
Breast: Deferred by me
GI: Soft, Non Tender, Non Distended and Normal Bowel Sounds
Rectal: Deferred by Provider
Genito-urinary: Deferred by me and No costovertebral tender
Musculoskeletal: No Clubbing, No Cyanosis and No Edema
Skin: Warm
Neuro: AO x 3 and Nonfocal/grossly intact
Hematologic/Lymphatic: No Lymphadenopathy
Psych: Calm
Laboratory Results
-
12/29/24 22:39
12/29/24 22:39
Laboratory Results
Lactic Acid Cancelled 12/30/24 02:45
Total Bilirubin 0.8 mg/dl (0.2-1.3) 12/29/24 22:39
AST 28 U/L (17-59) 12/29/24 22:39
ALT 25 U/L (0-50) 12/29/24 22:39
Alkaline Phosphatase 54 U/L (38-126) 12/29/24 22:39
Troponin I < 0.012 ng/ml 12/29/24 22:39
Data Reviewed
-
Diagnostic Radiology: Image Personally Visualized and interpreted
CT Scan: Report Reviewed by me
Medical Tests (Nuc Med, Echo, EKG etc): Image Personally Visualized and interpreted
Lab Data: Labs Reviewed by me
Old Records: Reviewed
Impression/Plan
-
IMPRESSION:
74-year-old with past medical history of insulin-dependent diabetes, hypertension, hyperlipidemia, TIAs, recent diagnosis of Parkinson gait presenting to the emergency department with a fall in the setting of. He was 2 days of a cough and found to
have COVID-19 at home. Low-grade temp 200 here, not hypoxic. CPK slightly elevated at 288. Rest of his labs are unremarkable. X-ray shows no acute infiltrates, no fractures on hip knee x-ray. CT area shows no acute intracranial process.
Patient has a nonfocal neurological exam but does appear weak. Given an unwitnessed fall the patient will be admitted for syncope evaluation as well as treatment for his COVID-19 infection.
PLAN:
Unwitnessed Fall - No known cardiac history but cannot rule out a cardiogenic syncopal episode. Unlikely seizure. No focal deficits to suggest acute stroke. Possibly due to weakness from COVID 19
- admit to telemetry
- cycle cardiac enzymes
- orthostatic vital signs
- u/a with cultures
- monitor i/os
- gentle hydration for now
- PT OT evaluation
CoVID 19 infection - not hypoxic. Low grade temps and mild weakness. At risk of decompenstation
- start paxlovid
- monitor O2
- trend cpk for now
DM II
- continue jardiance, pioglitazone and metformin
- lantus 15 hs for now
- sliding scale insulin
TIA/HTN
- continue losartan and metoprolol as well as amlodipine unless + orthostatics found
- continue aspirin, hold statin for now
BPH
- continue tamsulosin/finesteride
DVT PPX - lovenox sq
Code status - full code
[2024-12-30] MEDS: LR 1000 IV (03:37)
[2024-12-30 04:02] LABS: Urine Albumin 1+ (Neg - Trace); Urine Bilirubin Negative (Negative); Urine Character Clear (Clear); Urine Color Yellow; Urine Glucose 4+ (Negative); Urine Ketone 3+ (Negative); Urine Leukocyte Negative (Negative); Urine Nitrite Negative (Negative); Urine Occult Blood Negative (Negative); Urine Urobilinogen Negative (Neg - 1+)
[2024-12-30 05:47] LABS: Urine Amorphous Seen; Urine Bacteria Few (Negative)
[2024-12-30 05:56] LABS: Urine Yeast Few (Negative)
[2024-12-30 06:10] LABS: Hematocrit 41.2 % (39.0-52.0); Hemoglobin 13.9 g/dL (13.0-18.0); Mean Corp Hgb Conc. 33.7 g/dL (33.0-37.0); Mean Corpuscular Hgb 29.6 pg (27.0-31.0); Mean Corpuscular Volume 87.7 fL (80.0-94.0); Mean Platelet Volume 9.7 fL (7.4-10.4); Platelet Count 236 10^3/uL (130-400); Red Cell Dist. Width 15.1 % (11.5-14.5); White Blood Cell Count 6.3 10^3/uL (4.8-10.8)
[2024-12-30 06:22] LABS: Blood Urea Nitrogen 15 mg/dl (9-20); Calcium 9.1 mg/dl (8.4-10.2); Carbon Dioxide 29 mmol/L (22-30); Chloride 104 mmol/L (98-107); Creatine Phosphokinase 303 U/L (55-170); Estimated Creatinine Clearance 119 ml/min; Glucose 101 mg/dl (70-99); Potassium 3.1 mmol/L (3.5-5.1); Sodium 142 mmol/L (135-145); eGFR > 60.00
[2024-12-30 06:33] LABS: Troponin I < 0.012 ng/ml
[2024-12-30 06:50] LABS: TSH 1.33 uIU/ml (0.47-4.68)
[2024-12-30] MEDS: LOW STRENGTH ASPIRIN 81 MG PO (08:40)
[2024-12-30] MEDS: NORVASC 10 MG PO (08:40)
[2024-12-30] MEDS: COZAAR 50 MG PO (08:40)
[2024-12-30] MEDS: PROSCAR 5 MG PO (08:40)
[2024-12-30] MEDS: TOPROL XL 25 MG PO (08:41)
[2024-12-30] MEDS: GLUCOPHAGE 1000 MG PO (08:42)
[2024-12-30] MEDS: FARXIGA 10 MG PO (08:42)
[2024-12-30 08:49] LABS: Glucose - Point of Care 96 mg/dl (70-99)
[2024-12-30] MEDS: PAXLOVID 2X150 MG-100 MG DOSE PACK PO (09:02)
--- NOTE | 2024-12-30 10:55 | CM ---
Met with outside ER room. Patient and live in 2 level home with 3 steps to enter. He has stairglide to second floor. He uses cane at home and is current with outpatient PT. reports he has shuffling gait and has had falls over last 6
months. Neurologist is Dr. Garrett at [place].
PCP is Aminata Griffith
Pharmacy: [facility]
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
had COVID 19 and patient now has. PT evaluated in ER. Patient able to walk but needs cues on using rolling walker. He needed assist to get out of bed.
He is observation. OBS letter signed and on chart.
CM to follow for discharge needs. hopes he can come home and go back to outpatient PT.
PLAN: home with outpatient PT or home care PT
[2024-12-30 13:19] LABS: Glucose - Point of Care 115 mg/dl (70-99)
--- NOTE | 2024-12-30 13:24 | W.PN.HOSP.TC ---
Today's Communication/Plan
-
Orthostatic vital signs
Telemetry
Replete potassium as needed
Assessment / Plan
Assessment / Plan
#Unwitnessed fall
#Possible syncope
-Differentials include orthostasis >vasovagal >cardiogenic; low suspicion for neurogenic etiology
-Was found at home on the floor by his , had 1 previous instance of this happening with COVID in the past
-Patient does not recall the circumstances that led to him ending up on the ground, was bathing previous to the episode
-Initial cardiac workup was unremarkable, troponin negative x 3, ECG unremarkable
-CTA chest without signs of aortic dissection or significant aneurysm; x-rays without fractures
-Will check orthostatic vital signs, monitor on telemetry
-Consider echocardiogram
-Maintenance IVF
#COVID-19 infection
-Associated with weakness; no hypoxemia; is at high risk for severe outcomes
-Will started on Paxlovid upon arrival, will continue for 5-day course
-Monitor on room air
#Hypokalemia
-Potassium 3.1 morning of 12/30, repleted with 40 mill equivalents KCl x2
-Continue to trend BMP and replete as needed
#IDDM
-Home regimen includes metformin, Jardiance, tirzepatide, Lantus and ISS
-No known microvascular disease associations
-Currently on Lantus 15 units nightly, aspart 4 units with meals, metformin, pioglitazone
-Blood glucose goal 140-180
#Primary hypertension
-Home medications include losartan, metoprolol, amlodipine
-No known history of hypertensive systemic disease
-Remains on all medications for now, plan to de-escalate if orthostats positive
#BPH
-Home medications include tamsulosin and finasteride
-No signs or symptoms of urine retention
#Vascular parkinsonism
-Patient currently on Sinemet, recently diagnosed
-Question if associated with underlying orthostasis
-Currently on Myrbetriq and oxybutynin for neurogenic bladder
#H/O TIA
-Home medications include high intensity statin, aspirin, ezetimibe
-No signs or symptoms of cerebral ischemia here
DVT prophylaxis: Lovenox
Diet: 1800-calorie carb controlled
CODE STATUS: Full code
Anticipated Discharge: 24 - 48 hours
Subjective/Interval History
-
Date of Service: December 30, 2024
Seen and examined at the bedside. No acute events reported overnight. AFVSS this morning
CTA without signs of dissection. Potassium 3.1 this morning
Patient denies any new complaints. Denies recent palpitations, lightheadedness with positional changes, chest pain, dyspnea
Objective Data
-
Labs:
Laboratory Results
12/30/24
05:49
WBC 6.3
Hgb 13.9
Hct 41.2
Plt Count 236
Sodium 142
Potassium 3.1 L
Chloride 104
Carbon Dioxide 29
BUN 15
Creatinine 0.6 L
Glucose 101 H
Calcium 9.1
Vital Signs:
Vital Signs
Temp Pulse Resp BP Pulse Ox
100.0 F 85 20 154/81 96
12/29/24 22:54 12/30/24 10:45 12/30/24 10:45 12/30/24 09:00 12/30/24 09:30
Review of Systems
-
History Source: Patient
All other systems: Reviewed and negative
Physical Exam
-
General: Well Developed, Well Nourished, No Apparent Distress and Comfortable
HEENT: Normocephalic, Atraumatic and Moist Mucous Membranes
Respiratory: Clear to Auscultation and Non Labored Respirations
Cardiac: Regular Rhythm and S1/S2; Negative Murmur, Rub, JVD or Gallop
GI: Soft, Nontender, Nondistended and Normal Bowel Sounds
Musculoskeletal: No Clubbing, No Cyanosis and No Edema
Skin: Warm, Dry and Normal Turgor; Negative Rash
Neuro: AO x 3, Tremors, Nonfocal/Grossly Intact and Other (Muscle strength intact, no sensory deficits, PERRL, EOMI)
Psych: Calm
Data Reviewed
-
Labs: Labs Reviewed by me, Discussed with Patient and Discussed with Family
--- NOTE | 2024-12-30 16:03 | PTCARENOTE ---
pt again being verbally agressive. demanding to leave. dr ramirez notified. 0.25mg po ativan ordered. will monitor.
--- NOTE | 2024-12-30 16:45 | PTCARENOTE ---
pt refusing to take ativan. pt refusing to go upstairs. pt requesting to leave ama. dr ramirez and cross coverage doc aware.
--- NOTE | 2024-12-30 16:56 | W.PN.UPDATE ---
Update Note
Progress Note Update
Patient requesting to leave AGAINST MEDICAL ADVICE. I reviewed with the patient the risks of leaving against medical vice or syncope with trauma as well as . He verbally acknowledged understanding of these risks. His was present at
bedside.
== END 2024-12-30 17:16 | disposition left against medical advice (07) ==
LOC: ED 02:28
PROVIDERS: ADMITTING PHYSICIAN Internal Medicine; ATTENDING PHYSICIAN Internal Medicine; EMERGENCY PHYSICIAN Emergency Medicine; FAMILY PHYSICIAN Internal Medicine
DX: R53.1 Weakness (principal); G20.A1 Parkinson's disease without dyskinesia, without mention of fluctuations; U07.1 COVID-19; E11.9 Type 2 diabetes mellitus without complications; I10 Essential (primary) hypertension; Z79.82 Long term (current) use of aspirin; N40.0 Benign prostatic hyperplasia without lower urinary tract symptoms; Z86.73 Personal history of transient ischemic attack (TIA), and cerebral infarction without residual deficits; E87.6 Hypokalemia
CPT/HCPCS: 70450; 71046; 71275; 73502; 73564; 80048; 80053; 81003; 81015; 82550; 82962; 83605; 84443; 84484; 85025; 85027; 87040; 93005; 96360; 99285; G0378; Q9967